=== PATIENT | male | born 1980 | race Caucasian/White ===

== ENCOUNTER 2024-05-17 12:19 | Emergency (ER) | payer OTHER ==
[~2024-05-17] VITALS: Ht 165.1 cm; Wt 81.8 kg
[~2024-05-17 12:19] MED LIST: OMEP40CA PO
[2024-05-17 12:25] VITALS: BP 155/99; PULSE 95; RESP 18; TEMP 98.8; O2SAT 100
== END 2024-05-17 13:49 | disposition left against medical advice (07) ==
LOC: EMS 12:19
DX: R22.42 Localized swelling, mass and lump, left lower limb (principal); Z53.21 Procedure and treatment not carried out due to patient leaving prior to being seen by health care provider